=== PATIENT | female | born 1985 | race Caucasian/White ===

== ENCOUNTER 2016-12-06 16:30 | Emergency (ER) | payer MEDICAID, OTHER ==
[~2016-12-06 16:30] MED LIST: OMEP20TA PO; PREN29TA PO
--- NOTE | 2016-12-06 17:20 | PD ---
HPI Chief Complaint stomach pain, decreased feeling baby move, shortness of breath, white vaginal discharge, nausea, vomiting Date Seen: Dec 06, 2016 Time Seen: 17:34 Travel History International Travel<30 Days: No Contact w/Intl Traveler<30Days: No History of Present Illness HPI 31 year-old presents at 29/11 for stomach pain, decreased movement, and nausea/vomiting x2 days. Patient is predominantly Tuvaluan- speaking, but her bilingual helps translate. Epigastric pain started yesterday morning when picking up toys around the home. This pain radiated down around her abdomen and was accompanied by nausea/vomiting. She vomited yesterday once and today four times- always after eating or drinking, and has been unable to keep down food or liquids today. Also reports chills, shaky legs , and shortness of breath over the past two days. Concerned she did not feel the baby moving overnight, though did feel baby move here in the ED. Also reports increased white vaginal discharge, though denies foul odor, dysuria, or hematuria. Of note, she had previous vaginal delivery of twin boys at 24 weeks with her prior . Para: 2 : 2 Miscarriage: 0 : 0 History Past Medical History Narrative Medical Hx delivery Medical History: Denies Significant Hx Obstetric History Obstetric History vaginal delivery twin boys at 24 weeks, twin-twin perfusion syndrome Past Surgical History Surgical History: No Previous Surgery Family History Narrative Family History Per EMR Social History Narrative Social History Predominantly Tuvaluan-speaking Alcohol Use: No Tobacco Use: No Substance Abuse: No Allergies-Medications (Allergen,Severity, Reaction): Coded Allergies: No Known Allergies (Unverified , 12/06/16) Home Meds Active Scripts Omeprazole 20 Mg Tab20 Mg PO DAILY #30 TAB Ref 11 Prov:Mirian Fajardo MD R1 12/06/16 Reported Medications Omeprazole 20 Mg Tab20 Mg PO DAILY #30 TAB Ref 0 12/06/16 Vit-Iron Carbonyl ( Plus Iron 29-1 mg)1 Tab Tab1 Tab PO DAILY #30 TAB Ref 0 09/16/16 Discontinued Scripts Omeprazole 20 Mg Tab20 Mg PO DAILY #30 TAB Ref 11 Prov:Stephanie Castelan CNM [employer]OWS SOFTWARE ENGINEER 10/06/16 Review of Systems Except as stated in HPI: all other systems reviewed are Neg Physical Exam Narrative GENERAL: Adult gravid female in no acute distress SKIN: Warm and dry. HEENT: EOMI. MMM. NECK: No lymphadenopathy. CV: Regular rate and rhythm. No murmurs. RESP: Lungs CTAB. No wheezing. BREASTS: Bilateral exam showed no masses , no retractions, no nipple discharge. ABDOMEN/GI: Abdomen soft, gravid. Pain reproducible at epigastric region. GENITOURINARY: External Genitalia: intact and normal in appearance. Normal amount white serous vaginal discharge. Some vascularity of cervical os- closed- no friability. FHT's: Category: 1. Baseline 145. Reactive. Moderate Variability. No decels. EXTREMITIES: No cyanosis or edema. BACK: Nontender without obvious deformity NEUROLOGICAL: Awake and alert. Motor and sensory grossly within normal limits Data Data Vital Signs Reviewed: Yes Orders Vital Signs (Adult) .ON ADMISSION (12/06/16 18:00) ^ Labor Status (12/06/16 18:00) ^ Hydration (12/06/16 18:00) Labs n/a [facility] Medical Record Reviewed: Yes Plan 31 year-old at 29/11 presenting with acute epigastric pain and nausea/vomiting suggestive of GERD. 1. Intrapartum , 30 weeks gestation -Maternal vital signs reassuring -Category I tracing -Sterile speculum exam performed to evaluate pt report of excess white vaginal discharge- appeared within normal limits and not necessary of further workup. 2. Nausea/Vomiting, GERD Acute epigastric pain with associated nausea/vomiting mostly likely consistent with GERD and acute gastritis. Pt has previous prescription for omeprazole ordered 09/2017, never filled by patient. This was script was re-printed for her. Also counseled could use Tums and Ranitidine/Omeprazole/other OTC agents for symptom relief of GERD Discussed associated symptoms of SOB, leg weakness, tremors, chills likely secondary to vomiting and decreased hydration. Should expect improvement with improved PO intake. As patient was afebrile, normotensive, and with normal pulse, any symptoms of dehydration were likely mild. Pt was able to tolerate fluids in the OB ED prior to discharge. If repeated episodes nausea/vomiting consider further workup for gallstone vs further evaluation for gastric ulcer Follow up with OBGYN in 1 week SDW: Dr Christiansen, Dr Nuñez Diagnosis Diagnosis: Primary Impression: GERD (gastroesophageal reflux disease) Qualified Code: K21.9 - Gastroesophageal reflux disease, esophagitis presence not specified Additional Impressions: Nausea and vomiting Qualified Code: G43.A0 - Non-intractable cyclical vomiting with nausea with 30 completed weeks gestation Disposition: 01 DISCHARGE HOME Condition: Stable Scripts Omeprazole 20 Mg Tab20 Mg PO DAILY #30 TAB Ref 11 Prov:Mirian Fajardo MD R1 12/06/16 Mirian Fajardo MD R1 Dec 06, 2016 17:20
[2016-12-06] MEDS ORDERED: OMEP20TA PO ×2 (17:58→17:59)
== END 2016-12-06 18:01 | disposition home or self-care (01) ==
LOC: HOBED 16:30
DX: O26.893 Other specified pregnancy related conditions, third trimester (principal); K21.9 Gastro-esophageal reflux disease without esophagitis; G43.A0 Cyclical vomiting, in migraine, not intractable; R68.83 Chills (without fever); R06.02 Shortness of breath; N89.8 Other specified noninflammatory disorders of vagina; Z3A.30 30 weeks gestation of pregnancy
CPT/HCPCS: 99284

== ENCOUNTER 2017-01-27 08:44 | Emergency (ER) | payer MEDICAID ==
[2017-01-27 09:12] VITALS: BP 119/79; PULSE 59
[2017-01-27 09:13] VITALS: RESP 20; TEMP 97.9
--- NOTE | 2017-01-27 09:14 | PD ---
HPI Chief Complaint Possible ROM, contractions Date Seen: Jan 27, 2017 Time Seen: 09:00 (Leonidas Woodall MD R1) Travel History International Travel<30 Days: No Contact w/Intl Traveler<30Days: No Known Affected Area: No (Leonidas Woodall MD R1) History of Present Illness HPI Patient is a 31 year old at 37/4 weeks gestation presents to OB ED with report of leakage of fluid last night and contractions beginning last night. She states she is having contractions once about every half hour. She states the leakage of fluid was clear. Reports +FM. Denies urinary symptoms. She has no other complaints. She is GBS negative. Para: 2 : 2 (Leonidas Woodall MD R1) History Past Medical History Medical History: Denies Significant Hx (Leonidas Woodall MD R1) Obstetric History Obstetric History First delivered at 24 weeks twin complicated by twin- twin transfusion syndrome (Leonidas Woodall MD) Past Surgical History Surgical History: No Previous Surgery (Leonidas Woodall MD R1) Family History Family History: Negative (Leonidas Woodall MD R1) Social History Alcohol Use: No Tobacco Use: No Substance Abuse: No (Leonidas Woodall MD R1) Allergies-Medications (Allergen,Severity, Reaction): Coded Allergies: No Known Allergies (Unverified , 01/18/17) Home Meds Active Scripts Omeprazole 20 Mg Tab20 Mg PO DAILY #30 TAB Ref 11 Prov:Mirian Fajardo MD R1 12/06/16 Reported Medications Omeprazole 20 Mg Tab20 Mg PO DAILY #30 TAB Ref 0 12/06/16 Vit-Iron Carbonyl ( Plus Iron 29-1 mg)1 Tab Tab1 Tab PO DAILY #30 TAB Ref 0 09/16/16 Review of Systems Except as stated in HPI: all other systems reviewed are Neg (Leonidas Woodall MD R1) Physical Exam Narrative GENERAL: Well-nourished, well-developed patient. SKIN: Warm and dry. HEAD: Normocephalic and atraumatic. EYES: No scleral icterus. No injection or drainage. ENT: No nasal drainage noted. Mucous membranes pink. Airway patent. NECK: Supple, trachea midline. No JVD. CARDIOVASCULAR: Regular rate and rhythm without murmurs, gallops, or rubs. RESPIRATORY: Breath sounds equal bilaterally. No accessory muscle use. ABDOMEN/GI: Abdomen soft, non-tender, bowel sounds present, no rebound, no guarding Gravid to 37 weeks size GENITOURINARY: External Genitalia: intact and normal in appearance Cervix: posterior Dilatation: 2cm Effacement: 20% Station: -1 Presentation: vertex Membranes: intact Uterine Contractions: none FHT's: Category: I Baseline: 150s Reactive: yes Variability: mod Decels: none EXTREMITIES: No cyanosis or edema. BACK: Nontender without obvious deformity. No CVA tenderness. NEUROLOGICAL: Awake and alert. Motor and sensory grossly within normal limits. Normal speech. (Leonidas Woodall MD R1) Data Data Vital Signs Reviewed: Yes (Leonidas Woodall MD R1) [facility] Medical Record Reviewed: Yes Plan 31 year old at 37/4 weeks gestation presented with report of leakage of fluid last night and contractions beginning last night. 1. IUP - Category I tracing - No contractions on tocometer - Cervix 12/20/, vertex - Amnisure negative - GBS negative - [facility] with [facility] - Counseled patient on signs of active labor dw Dr. Murillo (Leonidas Woodall MD R1) Diagnosis Diagnosis: Primary Impression: Sac So' contraction Disposition: 01 DISCHARGE HOME Condition: Stable Patient Instructions: General Instructions, Early Labor Signs (ED) Addendum Remarks I rounded on the patient. I rounded with the resident. I reviewed the resident' s assessment and plan of care for this patient. I am in agreement with the plan of care for this patient. (Luana Trotter MD) Leonidas Woodall MD R1 Jan 27, 2017 09:14 Luana Trotter MD Jan 28, 2017 04:13
== END 2017-01-27 10:43 | disposition home or self-care (01) ==
LOC: HOBED 08:44
DX: O47.1 False labor at or after 37 completed weeks of gestation (principal); Z3A.37 37 weeks gestation of pregnancy
CPT/HCPCS: 59025; 84112

== ENCOUNTER 2017-02-11 12:59 | Inpatient (IN) | payer MEDICAID ==
[~2017-02-11] VITALS: Ht 167.6 cm; Wt 79.8 kg
[2017-02-11] VITALS (27 sets, daily range): BP systolic 91–134; BP diastolic 49–100; PULSE 56–96; RESP 16–18; TEMP 98.3–98.4
--- NOTE | 2017-02-11 14:09 | PD ---
HPI Chief Complaint possible ROM Date Seen: Feb 11, 2017 (Mani Call MD R2) Travel History International Travel<30 Days: No Contact w/Intl Traveler<30Days: No (aMni Call MD R2) History of Present Illness HPI Ms. Franklin is a 31 yo at 39 5/7 weeks (MARYSOL 02/13/2017) patient of [facility] who presents with concern for rupture of membrane. Patient states that at approximately 1220 today she was in bed when she felt her baby "drop" and noticed clear vaginal fluid. Patient subsequently went to the bathroom and noticed additional drainage of clear fluid; patient and her believe that this had no odor and was not suggestive of urine. Patient denies regular abdominal pain suggestive of contractions but states that she occasionally has short intervals of cramping. Patient denies vaginal bleeding, headache, shortness of breath, nausea/vomiting, or dysuria. Patient reports normal movement. Patient reports unremarkable history. US consistent with dates. Patient has history of twin vaginal delivery at 24 weeks. GBS negative Para: 1 : 2 (Mani Call MD R2) History Past Medical History Medical History: Denies Significant Hx (Mani Call MD R2) Obstetric History Obstetric History Twin delivery 2.5 yrs ago; 24 weeks vaginally (Mani Call MD R2) Past Surgical History Narrative Surgical amniocentesis- TTW w/ prior twin gestation [place] teeth (Mani Call MD R2) Family History Narrative Family History Father- DM (Mani Call MD R2) Social History Alcohol Use: No Tobacco Use: No Substance Abuse: No (Mani Call MD R2) Allergies-Medications (Allergen,Severity, Reaction): Coded Allergies: No Known Allergies (Unverified , 02/08/17) Home Meds Reported Medications Vit-Iron Carbonyl ( Plus Iron 29-1 mg)1 Tab Tab1 Tab PO DAILY #30 TAB Ref 0 09/16/16 Review of Systems General / Constitutional: No: Fever, Chills Eyes: No: Blurred Vision Cardiovascular: No: Chest Pain or Discomfort Respiratory: No: Short of Breath Gastrointestinal: No: Nausea, Vomiting Genitourinary: No: Urgency, Dysuria Skin: No Rash (Mani Call MD R2) Physical Exam BP 111/62 HR 66 Narrative GENERAL: Well-nourished, well-developed patient. SKIN: Warm and dry. HEAD: Normocephalic and atraumatic. EYES: No scleral icterus. No injection or drainage. ENT: No nasal drainage noted. Mucous membranes pink. Airway patent. NECK: Supple, trachea midline. No JVD. CARDIOVASCULAR: Regular rate and rhythm without murmurs. Normal perfusion RESPIRATORY: CTAB, normal rate ABDOMEN/GI: Abdomen soft, non-tender, bowel sounds present, no rebound, no guarding Gravid EXTREMITIES: No cyanosis or edema. BACK: Nontender without obvious deformity. No CVA tenderness. NEUROLOGICAL: Awake and alert. Motor and sensory function grossly within normal limits. GENITOURINARY: External Genitalia: intact and normal in appearance Cervix: Dilatation: 3-4cm Effacement: 60% Station: -2 Presentation: Vertex Membranes: Ruptured Uterine Contractions: none/irritability FHT's: Category: 1 Baseline: 140 Reactive: Y Variability: Moderate Decels: None (Mani Call MD R2) Data Data Vital Signs Reviewed: Yes (Mani Call MD R2) MDM Medical Record Reviewed: Yes Narrative Course / MDM 31 yo at 39 5/7 weeks (MARYSOL 02/13/2017) -Cervix 3-4 cm/60%/-2 -Cat 1 rhythm -GBS negative -No contractions Plan: -Will check amnisure -Will monitor EFM Interval: Amnisure negative Patient's cervix was visualized with speculum; pooling present. Repeat amnisure performed and was positive Updated Plan: -Will admit patient for PROM -Will start IVF -Will check CBC, UA, blood typing -Will plan to augment labor as needed (Mani aCll MD R2) Attending Attestation Patient seen and evaluated with resident under direct supervision, agree with assessment and plan. (Flaco Gabriel MD) Mani Call MD R2 Feb 11, 2017 14:09 Flaco Gabriel MD Feb 11, 2017 18:21 Mani Call MD R2 Feb 11, 2017 14:09
[2017-02-11] MEDS ORDERED: OXYTOCIN 30 UNITS-500ML PREMIX 500 ML IV ONE (14:45)
[2017-02-11] MEDS ORDERED: LIDOCAINE HCL 1% 50 ML VIAL I-DERMAL PRN (14:45)
[2017-02-11] MEDS ORDERED: CITRIC ACID-SODIUM CITRATE LIQ 30 ML UDC PO SCH (14:45)
[2017-02-11] MEDS ORDERED: MINERAL OIL 10 ML VIAL TOPICAL PRN (14:45)
[2017-02-11] MEDS ORDERED: LIDOCAINE HCL 1% 50 ML VIAL INFIL PRN (14:45)
[2017-02-11] MEDS ORDERED: SODIUM CHLOR 0.9% 1000 ML INJ 1,000 ML IV PRN (14:55)
[2017-02-11] MEDS ORDERED: ONDANSETRON HCL 4 MG/2 ML VIAL IV PRN (15:00)
[2017-02-11] MEDS ORDERED: SODIUM CHLORID 0.9% 500 ML INJ 500 ML IV PRN (15:00)
[2017-02-11] MEDS ORDERED: LACTATED RINGER'S 1000 ML INJ 1,000 ML IV SCH (15:00)
[2017-02-11] MEDS ORDERED: LACTATED RINGER'S 1000 ML INJ 1,000 ML IV PRN (15:00)
--- NOTE | 2017-02-11 15:14 | HHI.HP ---
History & Physical H&P HPI HPI Chief Complaint possible ROM Date Seen: Feb 11, 2017 Travel History International Travel<30 Days: No Contact w/Intl Traveler<30Days: No History of Present Illness HPI Ms. Franklin is a 31 yo at 39 5/7 weeks (MARYS[facility] 02/13/2017) patient of [facility] who presents with concern for rupture of membrane. Patient states that at approximately 1220 today she was in bed when she felt her baby "drop" and noticed clear vaginal fluid. Patient subsequently went to the bathroom and noticed additional drainage of clear fluid; patient and her believe that this had no odor and was not suggestive of urine. Patient denies regular abdominal pain suggestive of contractions but states that she occasionally has short intervals of cramping. Patient denies vaginal bleeding, headache, shortness of breath, nausea/vomiting, or dysuria. Patient reports normal movement. Patient reports unremarkable history. US consistent with dates. Patient has history of twin vaginal delivery at 24 weeks. GBS negative Para: 1 : 2 History (Limited) History Past Medical History Medical History: Denies Significant Hx Obstetric History Obstetric History Twin delivery 2.5 yrs ago; 24 weeks vaginally Past Surgical History Narrative Surgical amniocentesis- TTW w/ prior twin gestation [place] teeth Family History Narrative Family History Father- DM Social History Alcohol Use: No Tobacco Use: No Substance Abuse: No Allergies-Medications Allergies-Medications (Allergen,Severity, Reaction): Coded Allergies: No Known Allergies (Unverified , 02/08/17) Home Meds Active Scripts Omeprazole 20 Mg Tab20 Mg PO DAILY #30 TAB Ref 11 Prov:Mirian Fajardo MD R1 12/06/16 Reported Medications Omeprazole 20 Mg Tab20 Mg PO DAILY #30 TAB Ref 0 12/06/16 Vit-Iron Carbonyl ( Plus Iron 29-1 mg)1 Tab Tab1 Tab PO DAILY #30 TAB Ref 0 09/16/16 ROS Review of Systems General / Constitutional: No: Fever, Chills Eyes: No: Blurred Vision Cardiovascular: No: Chest Pain or Discomfort Respiratory: No: Short of Breath Gastrointestinal: No: Nausea, Vomiting Genitourinary: No: Urgency, Dysuria Skin: No Rash Physical Exam Physical Exam BP 111/62 HR 66 Narrative GENERAL: Well-nourished, well-developed patient. SKIN: Warm and dry. HEAD: Normocephalic and atraumatic. EYES: No scleral icterus. No injection or drainage. ENT: No nasal drainage noted. Mucous membranes pink. Airway patent. NECK: Supple, trachea midline. No JVD. CARDIOVASCULAR: Regular rate and rhythm without murmurs. Normal perfusion RESPIRATORY: CTAB, normal rate ABDOMEN/GI: Abdomen soft, non-tender, bowel sounds present, no rebound, no guarding Gravid EXTREMITIES: No cyanosis or edema. BACK: Nontender without obvious deformity. No CVA tenderness. NEUROLOGICAL: Awake and alert. Motor and sensory function grossly within normal limits. GENITOURINARY: External Genitalia: intact and normal in appearance Cervix: Dilatation: 3-4cm Effacement: 60% Station: -2 Presentation: Vertex Membranes: Ruptured Uterine Contractions: none/irritability FHT's: Category: 1 Baseline: 140 Reactive: Y Variability: Moderate Decels: None Data Data Data Vital Signs Reviewed: Yes MDM MDM Medical Record Reviewed: Yes Narrative Course / MDM 31 yo at 39 5/7 weeks (MARYSOL 02/13/2017) -Cervix 3-4 cm/60%/-2 -Cat 1 rhythm -GBS negative -No contractions Plan: -Will check amnisure -Will monitor EFM Interval: Amnisure negative Patient's cervix was visualized with speculum; pooling present. Repeat amnisure performed and was positive Updated Plan: -Will admit patient for PROM -Will start IVF -Will check CBC, UA, blood typing -Will plan to augment labor as needed (Mani Call MD R2) H&P Patient seen and evaluated with resident under direct supervision, agree with assessment and plan. (Flaco Gabriel MD) Mani Call MD R2 Feb 11, 2017 15:14 Flaco Gabriel MD Feb 11, 2017 18:21
[2017-02-11 15:29] LABS: AUTOMATED NEUTROPHIL # 6.9 TH/MM3 (1.8-7.7); BASOPHIL % 0.3 % (0.0-2.0); EOSINOPHIL # 0.1 TH/MM3 (0-0.4); EOSINOPHIL % 0.8 % (0.0-4.0); HEMATOCRIT 32.1 % (35.0-46.0); HEMO FLAGS DIFF FINAL; LYMPH % 17.2 % (9.0-44.0); LYMPHOCYTE # 1.6 TH/MM3 (1.0-4.8); MEAN CELL VOLUME 85.2 FL (80.0-100.0); MEAN CORPUSCULAR HEMOGLOBIN 28.7 PG (27.0-34.0); MEAN CORPUSCULAR HGB CONC 33.7 % (32.0-36.0); MONO % 5.4 % (0.0-8.0); NEUT % 76.3 % (16.0-70.0); PLATELET COUNT 319 TH/MM3 (150-450); RED BLOOD COUNT 3.77 MIL/MM3 (4.00-5.30); WHITE BLOOD COUNT 9.1 TH/MM3 (4.0-11.0)
[2017-02-11 15:37] LABS: BLOOD, URINE NEG (NEG); COMMENT (UR) CULT NOT INDICATED; CULTURE IF INDICATED CULT NOT INDICATED; GLUCOSE,URINE NEG (NEG); KETONE, URINE NEG (NEG); MUCUS URINE FEW /lpf (OCC); NITRITE,URINE NEG (NEG); SQUAMOUS EPITHELIAL CELL URINE 3 /hpf (0-5); URINE COLOR YELLOW (YELLW/STRAW)
[2017-02-11] MEDS ORDERED: OXYTOCIN 30 UNITS-500ML PREMIX 500 ML IV SCH (20:00)
[2017-02-11] MEDS ORDERED: fentaNYL 2MCG-BUPIV 0.125% INJ 100 ML ONE (23:12)
[2017-02-12] VITALS (11 sets, daily range): BP systolic 107–118; BP diastolic 52–65; PULSE 62–77; RESP 16–20; TEMP 98.5
--- NOTE | 2017-02-12 00:59 | PD.OB.DELI ---
Anesthesia: Epidural Episiotomy: None Vaginal Delivery: Normal Presentation: Occiput anterior Nuchal Cord: None Delayed cord clamping (45 sec): Yes Infant: Female One Minute : 8 Five Minute : 9 Weight: 3020 Placenta: Spontaneous delivery, Intact, 3 vessel cord Laceration: 2 deg Repair: Vicryl interrupted ([id number]) Flaco Gabriel MD Feb 12, 2017 00:59
[2017-02-12] MEDS ORDERED: BENZOCAINE 20% TOPICAL SPRAY 60 ML CAN TOPICAL PRN (01:00)
[2017-02-12] MEDS ORDERED: oxyCODONE/ACETAMINOPHEN 5 MG/325 MG TAB PO PRN (01:00)
[2017-02-12] MEDS ORDERED: DOCUSATE SODIUM 50 MG/SENNA 8.6 MG TAB PO PRN (01:00)
[2017-02-12] MEDS ORDERED: ONDANSETRON ODT 4 MG TAB PO PRN (01:00)
[2017-02-12] MEDS ORDERED: ACETAMINOPHEN 325 MG TAB PO PRN (01:00)
[2017-02-12] MEDS ORDERED: WITCH HAZEL 50%/GLYCERIN 12.5% 40 PAD JAR TOPICAL PRN (01:00)
[2017-02-12] MEDS ORDERED: ZOLPIDEM TARTRATE 5 MG TAB PO PRN (01:00)
[2017-02-12] MEDS ORDERED: ALUMINUM/MAGNESIUM/SIMETH 30 ML CUP PO PRN (01:00)
[2017-02-12] MEDS ORDERED: SODIUM CHLORIDE 0.9% FLUSH 10 ML FLUSH IV FLUSH PRN (01:00)
[2017-02-12] MEDS ORDERED: NO SYSTEM NARCOTICS PRN (02:00)
[2017-02-12] MEDS ORDERED: fentaNYL 2MCG-BUPIV 0.125% 100 ML EPIDURAL SCH (02:00)
[2017-02-12] MEDS ORDERED: DO NOT ADMINISTER ANTICOAGULANTS PRN (02:00)
[2017-02-12] MEDS ORDERED: ePHEDrine/NS 25 MG/5 ML SYR IV PRN (02:00)
[2017-02-12] MEDS: IBUPROFEN 600 MG TAB PO PRN ×3 (04:34→21:53)
[2017-02-12] MEDS ORDERED: SODIUM CHLORIDE 0.9% FLUSH 10 ML FLUSH IV FLUSH SCH (09:00)
--- NOTE | 2017-02-12 12:18 | HHI.OB ---
Subjective Post Day: 0 Remarks 31 year old female s/p vaginal delivery at 39/6 wks gestation, PPD 0. AFVSS. Patient reports she is feeling well. Bleeding is decreasing and pain is well-controlled. She is breast feeding and bonding well with baby. Ambulating without difficulties. She is tolerating a diet without nausea or vomiting. She has not had a bowel movement. She has passed gas. Denies chest pain, dysuria, calf pain. Does endorse some SOB with exertion but otherwise denies any pain or any other symptoms. (Evelia Morgan MD R2) Remarks Patient seen and evaluated with resident under direct supervision, agree with assessment and plan. (Flaco Gabriel MD) Objective Vitals/I&O Vital Signs Date Time Temp Pulse Resp B/P Pulse Ox O2 Delivery O2 Flow Rate FiO2 02/12/17 08:00 98.5 76 20 118/56 02/12/17 04:30 107/60 02/12/17 04:30 98.5 62 18 02/12/17 02:21 73 109/55 02/12/17 02:20 18 02/12/17 01:46 77 114/64 02/12/17 01:45 16 02/12/17 01:32 75 111/61 02/12/17 01:32 16 02/12/17 01:19 74 109/59 02/12/17 01:19 18 02/12/17 01:01 75 18 113/65 02/12/17 00:41 73 109/52 02/12/17 00:40 18 02/11/17 23:51 81 134/87 02/11/17 23:46 79 18 129/76 02/11/17 23:42 96 18 02/11/17 23:42 122/100 02/11/17 23:22 18 02/11/17 23:15 76 114/75 02/11/17 22:33 71 127/61 02/11/17 22:32 18 02/11/17 22:01 98.4 58 18 02/11/17 22:01 111/62 02/11/17 21:02 68 02/11/17 21:02 110/49 02/11/17 21:01 18 02/11/17 20:29 58 16 115/58 02/11/17 20:00 16 02/11/17 19:57 63 111/61 02/11/17 19:55 64 104/60 02/11/17 19:23 18 02/11/17 19:23 98.3 02/11/17 19:22 62 118/65 02/11/17 19:00 64 120/65 02/11/17 18:31 63 120/65 02/11/17 18:00 73 113/70 02/11/17 17:30 87 108/62 02/11/17 17:01 78 91/56 02/11/17 16:45 18 02/11/17 16:30 65 117/70 02/11/17 16:10 98.3 18 02/11/17 16:00 56 123/61 02/11/17 15:30 64 116/67 02/11/17 15:26 58 112/61 Objective Remarks GENERAL: Well-nourished, well-developed patient. CARDIOVASCULAR: Regular rate and rhythm without murmurs, gallops, or rubs. RESPIRATORY: Breath sounds equal bilaterally. No accessory muscle use. ABDOMEN/GI: Abdomen soft, non-tender. Fundus: Firm, non-tender at umbilicus. GENITOURINARY: Light to moderate bleeding. EXTREMITIES: No cyanosis or edema, non-tender, without signs of DVT. Medications and IVs Current Medications Medications (Trade) Dose Ordered Sig/Unique Route Start Time Stop Time Status Last Admin Lactated Ringer's 1,000 ml @ 125 mls/hr Q8H IV 02/11/17 15:00 02/11/17 22:29 Lactated Ringer's 1,000 ml @ 3,000 mls/hr Q20M PRN IV 02/11/17 15:00 (NS 1000 ml Inj) 1,000 ml @ 100 mls/hr Q10H PRN IV 02/11/17 14:55 (Zofran Inj) 4 mg Q6H PRN IV 02/11/17 15:00 (fentaNYL INJ) 50 mcg Q1H PRN IV PUSH 02/11/17 14:45 (fentaNYL INJ) 100 mcg Q1H PRN IV PUSH 02/11/17 15:00 02/11/17 22:29 Mineral Oil 10 ml 10 ml UNSCH PRN TOPICAL 02/11/17 14:45 (Pitocin 30 Units-NS 500 ml Premix) 500 ml @ 0 mls/hr TITRATE IV 02/11/17 20:00 (NS Flush) 2 ml BID IV FLUSH 02/12/17 09:00 (NS Flush) 2 ml UNSCH PRN IV FLUSH 02/12/17 01:00 (Tylenol) 650 mg Q4H PRN PO 02/12/17 01:00 (Motrin) 600 mg Q6H PRN PO 02/12/17 01:00 02/12/17 04:34 (Percocet 5-325 Mg) 2 tab Q4H PRN PO 02/12/17 01:00 (Americaine 20% Top Spr) 1 spray Q4H PRN TOPICAL 02/12/17 01:00 (Tucks Pads) 1 applic QID PRN TOPICAL 02/12/17 01:00 (Liudmila-Colace) 2 tab Q12H PRN PO 02/12/17 01:00 (Ambien) 5 mg HS PRN PO 02/12/17 01:00 (M-M-R Ii Inj) 0.5 ml ONCE ONCE SQ 02/12/17 16:00 02/12/17 16:01 (Boostrix Inj) 0.5 ml ONCE ONCE IM 02/12/17 16:00 02/12/17 16:01 (Mag-Al Plus Susp Liq) 15 ml Q8H PRN PO 02/12/17 01:00 (Zofran Odt) 4 mg Q6H PRN PO 02/12/17 01:00 Miscellaneous Information No systemic narcotics to be given except... UNSCH PRN .XX 02/12/17 02:00 02/13/17 01:59 Miscellaneous Information DO NOT ADMINISTER ANY ANTICOAGUL... UNSCH PRN .XX 02/12/17 02:00 02/13/17 01:59 (fentaNYL 2MCG-BUPIV 0.125% INJ) 100 ml @ 0 mls/hr TITRATE EPIDURAL 02/12/17 02:00 (ePHEDrine/NS 25 MG/5 ML SYR) 10 mg UNSCH PRN IV 02/12/17 02:00 02/13/17 01:59 (Evelia Morgan MD R2) Assessment/Plan Assessment and Plan 31 yo [id number] female s/p vaginal delivery PPD 0. - AFVSS - Continue routine care * check pulse ox due to SOB with exertion - Motrin and Percocet PRN pain - Encourage OOB - Pelvic rest x 6 wks. - Contraception: options discussed, undecided. - Recommend post follow up in 6 wks with [facility] - Anticipate D/C in 1-2days dw Dr. Gabriel and Dr. Rankin (Evelia Morgan MD R2) Evelia Morgan MD R2 Feb 12, 2017 12:18 Flaco Gabriel MD Feb 13, 2017 19:15
[2017-02-12] MEDS ORDERED: IBUP-232 PO (13:38)
--- NOTE | 2017-02-12 13:41 | HHI.DCPOC ---
Discharge Care Plan Diagnosis: (1) Vaginal delivery (2) PROM (premature rupture of membranes) Report Symptoms to Your Doctor -Temperate above 100.5 degrees -Redness, of incision or excessive or foul smelling drainage -Unusual pain or calf pain -Increased vaginal bleeding -Painful or difficulty urinating -Feelings of extreme sadness or anxiety after 2 weeks Goals to Promote Your Health * To prevent worsening of your condition and complications * To maintain your health at the optimal level Directions to Meet Your Goals Take your medications as prescribed Follow your dietary instruction Follow activity as directed Ensure plenty of rest for recovery Drink fluids for hydration Keep your appointments as scheduled Take your immunizations and boosters as scheduled If your symptoms worsen call your PCP, if no PCP go to Urgent Care Center or Emergency Room Smoking is Dangerous to Your Health. Avoid second hand smoke Call the 24-hour crisis hotline for domestic abuse at Evelia Morgan MD R2 Feb 12, 2017 13:41
[2017-02-12] MEDS ORDERED: DIPHTH/TETANUS/ACEL PERTUSSIS (BOOSTER) 0.5 ML VIAL/PFS IM ONE (16:00)
[2017-02-12] MEDS ORDERED: MEASLES, MUMPS, RUBELLA VACCINE 0.5 ML VIAL SQ ONE (16:00)
--- NOTE | 2017-02-13 07:42 | HHI.OB ---
Subjective Post Day: 1 Remarks day #1. AFVSS overnight. Pain controlled. Decreased lochia. Denies dysuria. No breast tenderness. She is feeding the baby via breast. Appetite good. No nausea or vomiting. Endorses flatus. Positive bowel movement. Ambulating well. Denies calf pain, shortness of breath, or cough. Otherwise, she is doing well this morning and has no other complaints. Objective Vitals/I&O Vital Signs Date Time Temp Pulse Resp B/P Pulse Ox O2 Delivery O2 Flow Rate FiO2 02/12/17 08:00 98.5 76 20 118/56 Objective Remarks GENERAL: Well-nourished, well-developed patient. CARDIOVASCULAR: Regular rate and rhythm without murmurs, gallops, or rubs. RESPIRATORY: Breath sounds equal bilaterally. No accessory muscle use. ABDOMEN/GI: Abdomen soft, non-tender. Fundus: Firm, non-tender at umbilicus. GENITOURINARY: Light to moderate bleeding. EXTREMITIES: No cyanosis or edema, non-tender, without signs of DVT. Medications and IVs Current Medications Medications (Trade) Dose Ordered Sig/Unique Route Start Time Stop Time Status Last Admin Lactated Ringer's 1,000 ml @ 125 mls/hr Q8H IV 02/11/17 15:00 02/11/17 22:29 Lactated Ringer's 1,000 ml @ 3,000 mls/hr Q20M PRN IV 02/11/17 15:00 (NS 1000 ml Inj) 1,000 ml @ 100 mls/hr Q10H PRN IV 02/11/17 14:55 (Zofran Inj) 4 mg Q6H PRN IV 02/11/17 15:00 (fentaNYL INJ) 50 mcg Q1H PRN IV PUSH 02/11/17 14:45 (fentaNYL INJ) 100 mcg Q1H PRN IV PUSH 02/11/17 15:00 02/11/17 22:29 Mineral Oil 10 ml 10 ml UNSCH PRN TOPICAL 02/11/17 14:45 (Pitocin 30 Units-NS 500 ml Premix) 500 ml @ 0 mls/hr TITRATE IV 02/11/17 20:00 (NS Flush) 2 ml BID IV FLUSH 02/12/17 09:00 (NS Flush) 2 ml UNSCH PRN IV FLUSH 02/12/17 01:00 (Tylenol) 650 mg Q4H PRN PO 02/12/17 01:00 (Motrin) 600 mg Q6H PRN PO 02/12/17 01:00 02/12/17 21:53 (Percocet 5-325 Mg) 2 tab Q4H PRN PO 02/12/17 01:00 (Americaine 20% Top Spr) 1 spray Q4H PRN TOPICAL 02/12/17 01:00 (Tucks Pads) 1 applic QID PRN TOPICAL 02/12/17 01:00 (Liudmila-Colace) 2 tab Q12H PRN PO 02/12/17 01:00 02/12/17 13:15 (Ambien) 5 mg HS PRN PO 02/12/17 01:00 (Mag-Al Plus Susp Liq) 15 ml Q8H PRN PO 02/12/17 01:00 Ondansetron HCl 4 mg 4 mg Q6H PRN PO 02/12/17 01:00 (fentaNYL 2MCG-BUPIV 0.125% INJ) 100 ml @ 0 mls/hr TITRATE EPIDURAL 02/12/17 02:00 Assessment/Plan Assessment and Plan 31 yo [id number] female s/p vaginal delivery PPD 1. - AFVSS - Continue routine care - Motrin and Percocet PRN pain - Encourage OOB - Pelvic rest x 6 wks. - Contraception: undecided. - Recommend post follow up in 6 wks with care for woman - Anticipate D/C today Dann Nogueira Dr., MD R1 Feb 13, 2017 07:42
== END 2017-02-13 13:00 | disposition home or self-care (01) | DRG 775 ==
LOC: HOBED 12:59 → H2EB 14:38 → H1EA 02-12 03:26
PROVIDERS: ADMIT Obstetrics & Gynecology; ATTEND Obstetrics & Gynecology
PROC: 10E0XZZ Delivery of Products of Conception, External Approach (ICD-10-PCS; principal; 2017-02-12)
PROC: 0KQM0ZZ Repair Perineum Muscle, Open Approach (ICD-10-PCS; 2017-02-12)
DX: O70.1 Second degree perineal laceration during delivery (principal); Z37.0 Single live birth; Z3A.39 39 weeks gestation of pregnancy
CPT/HCPCS: 81001; 84112; 85025; 86900; 86901; 90715; 99285; J3010; J7120